=== PATIENT | female | born 1945 | race Caucasian/White ===

== ENCOUNTER → 2016-07-19 | Outpatient (CLI) | payer MEDICARE, OTHER ==
[~2016-07-19] MED LIST: BIOT25008 PO; CHOL10003 PO; ESTR0.5T15 PO; LOSA50TA52 PO; MULT-862 PO; OMEP20TA11 PO; OXYB5TAB73 PO; PREVAGEN PO; PROM-21 PO; SUCR1TAB29 PO; [UNRECOGNIZED DRUG - CODE] PO; [UNRECOGNIZED DRUG - REMARK] TD
== END ==
LOC: WC.BC 16:06
DX: Z12.31 Encounter for screening mammogram for malignant neoplasm of breast (principal)
CPT/HCPCS: 77063; G0202